=== PATIENT | male | born 1980 | race Caucasian/White ===

== ENCOUNTER 2017-11-21 13:54 | Outpatient (CLI) | payer OTHER | END 2017-11-21 13:55 | LOC: LABRHC 13:54 | PROVIDERS: ATTEND Physician Assistant | DX: R30.0 Dysuria (principal) | CPT/HCPCS: 87086; 87186 ==

== ENCOUNTER 2017-12-05 13:32 | Outpatient (CLI) | payer OTHER ==
--- NOTE | 2017-12-05 18:51 | Diagnostic Imaging Report ---
CHIVO LEVY [facility] [address] [facility] [address] [place] [id number] Report Submission Date: Dec 05, 2017 4:08:23 PM CDT Patient Study Name: KARTIK LUIS Date: Dec 05, 2017 1:57:14 PM CDT Modality Type: CT\SR Gender: M Description: CT ABD PELVIS W/ CON : 80 Institution: [facility] Physician: CHIVO LEVY Examination: CT Abdomen/pelvis History: LOWER ABDOMEN PAIN; ABDOMEN GUARDING;NAUSEA (Hx) Comparison exams: None available Technique: CT Abdomen/pelvis with IV protocol. Findings: Liver demonstrates mild diffuse low attenuation. No central lesion. Spleen, adrenals, pancreas, kidneys and gallbladder are without gross irregularity. No abnormal enhancement. No gallstone. No suspicious renal calcifications. Ureters are nondilated in their course through the abdomen and pelvis. No central calcifications. Bladder margin within normal limits. Abdominal aorta without aneurysm or peripheral atherosclerotic disease. Cardiac silhouette is not enlarged. No pericardial effusion. No abnormal small bowel dilation. Stool within the large bowel limiting sensitivity. No mesenteric inflammatory changes or free fluid. Cecal region surgical clips. Thickening inflammation involving the sigmoid colon. No adjacent fluid collection identified. Osseous structures within normal limits. Lung bases without infiltrate. No effusion. Impression: Sigmoid diverticulitis. No evidence for abscess or perforation at this time. No acute upper abdominal organ inflammatory process. No gallstone. Fatty liver. No suspicious renal calcifications or abnormal ureteric dilation. No lung base consolidation or effusion. Discussed findings with Chivo Levy at 1607 hours on 05 December 2017 CDT Electronically signed on Dec 05, 2017 4:08:23 PM CDT by: Bhupendra ESTRADA
== END 2017-12-05 13:45 ==
LOC: RAD 13:32
PROVIDERS: ATTEND Physician Assistant
DX: R10.30 Lower abdominal pain, unspecified (principal); R11.0 Nausea; R19.8 Other specified symptoms and signs involving the digestive system and abdomen; R30.0 Dysuria
CPT/HCPCS: 74177; 87086; 87491; 87591; Q9967

== ENCOUNTER 2018-06-08 17:04 | Emergency (ER) | payer OTHER ==
--- NOTE | 2018-06-08 17:15 | ED Physician Documentation ---
General Adult - HISTORIAN Historian: patient - HPI Stated Complaint: beltran leaking Chief Complaint: General Adult Additional Information: Patient presents to ED with urine leaking around beltran catheter. 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 He was instructed to come here by surgeon referral management liaison to have beltran flushed. Onset: hours (4) Timing: still present Severity: mild Further Comments: no - ROS CONST: denies: fever EYES/ENT: denies: none CVS/RESP: denies: chest pain, shortness of breath GI/: denies: vomiting, nausea MS/SKIN/LYMPH: none NEURO/PSYCH: denies: headache - PAST HX Past History: other Surgeries/Procedures: other (colorectal surgery for colovescical fistula) Allergies/Adverse Reactions: Allergies Allergy/AdvReac Type Severity Reaction Status Date / Time No Known Drug Allergies Allergy Verified 06/08/18 17:20 Home Medications: Ambulatory Orders Medication Instructions Recorded Cyclobenzaprine HCl [Flexeril] 5 mg PO TID 06/08/18 Docusate Sodium [Colace] 100 mg PO BID 06/08/18 Ibuprofen [Advil] 400 mg PO Q6H 06/08/18 Oxycodone HCl [Roxicodone] 5 mg PO Q6H PRN 06/08/18 Polyethylene Glycol 3350 [Miralax] 17 gm PO 1100 06/08/18 Tizanidine HCl [Zanaflex] 2 mg PO Q8H PRN 06/08/18 - SOCIAL HX Smoking History: non-smoker Alcohol Use: none Drug Use: none - FAMILY HX Family History: No - REVIEWED ASSESSMENTS Nursing Assessment Reviewed: Yes Vitals Reviewed: Yes Progress - Progress Progress: 1720 Beltran balloon was deflated. Catheter was attempted to be advanced, however, could not. Balloon was re-inflated. 1745 Beltran was flushed with good return. No blood. General Adult Physical Exam - PHYSICAL EXAM GENERAL APPEARANCE: no distress EENT: ERVIN NECK: normal inspection RESPIRATORY: no resp distress, chest non-tender, breath sounds normal CVS: reg rate & rhythm, heart sounds normal ABDOMEN: soft, tenderness (at surgical incision), other (midline surgical incision, with fidencio, healing. NO evidence of infection) BACK: no CVA tenderness SKIN: warm/dry EXTREMITIES: non-tender NEURO: oriented X3 Discharge Clincal Impression: Beltran catheter problem Qualifiers: Encounter type: initial encounter Qualified Code(s): T83.9XXA - Unspecified complication of genitourinary prosthetic device, implant and graft, initial encounter Referrals: Hayley Najera PA [Primary Care Provider] - 2 Days Additional Instructions: 1. Drink plenty of fluids. 2 liters minimum per day. 2. Apply lubricant around catheter site twice daily 3. Follow surgeons discharge instructions 4. Follow up with surgeon as already scheduled 5. Return to [facility] ED with new or worsening symptoms. Condition: Stable Disposition: 01 HOME, SELF-CARE Decision to Admit: NO Date of Decison to Admit: 06/08/18 Decision Time: 17:57
[2018-06-08 17:49] VITALS: BP 108/88
== END 2018-06-08 18:08 | disposition home or self-care (01) ==
LOC: ED 17:04
DX: T83.038A Leakage of other urinary catheter, initial encounter (principal)
CPT/HCPCS: 99281; 99282; J7030